=== PATIENT | female | born 2000 ===

== ENCOUNTER 2021-03-19 20:30 | Inpatient (IN) | payer MEDICAID ==
[2021-03-19] MEDS ORDERED: LIDOCAINE (2%) 20 MG/1 ML VIAL 20 ML MDV INFILTRATI ONE (22:12)
[2021-03-19] MEDS ORDERED: LOPERAMIDE 2 MG CAP PO PRN (22:12)
[2021-03-19] MEDS ORDERED: miSOPROStol 200 MCG TAB PR PRN (22:12)
[2021-03-19] MEDS ORDERED: CARBOPROST TROMETHAMINE 250 MCG/1 ML INJ IM PRN (22:12)
[2021-03-19] MEDS ORDERED: OXYTOCIN 10 UNIT/1 ML INJ IM PRN (22:12)
[2021-03-19] MEDS ORDERED: METHYLERGONOVINE MALEATE 0.2 MG/ML VIAL IM PRN (22:12)
[2021-03-19] MEDS ORDERED: MINERAL OIL 30 ML ORAL LIQD PO PRN (22:12)
[2021-03-19] MEDS ORDERED: ACETAMINOPHEN 325 MG TAB PO PRN (22:12)
[2021-03-19] MEDS ORDERED: NALOXONE 0.4 MG/1 ML INJ IV PRN (22:12)
[2021-03-19] MEDS ORDERED: AMPICILLIN/NS 2 GM/100 ML 2 GM/100 ML BAG IV ONE (22:12)
[2021-03-19] MEDS ORDERED: BUTORPHANOL 2 MG/1 ML INJ IV PRN (22:12)
[2021-03-19] MEDS ORDERED: ePHEDrine SULFATE 50 MG/1 ML INJ IV PRN (22:12)
[2021-03-19] MEDS ORDERED: TERBUTALINE 1 MG/1 ML INJ SUB-Q PRN (22:12)
[2021-03-19] MEDS ORDERED: ONDANSETRON 4 MG/2 ML INJ IV PRN (22:12)
[2021-03-19] MEDS ORDERED: OXYTOCIN DRIP 30 UNITS/500 ML BAG IV SCH ×2 (23:00)
[2021-03-19] MEDS: LACTATED RINGERS 1,000 ML IV SCH (23:54)
[2021-03-20 00:09] LABS: Hematocrit 34.1 % (30.3-42.9); Hemoglobin 11.3 gm/dl (10.1-14.3); Mean Corpuscular HGB Conc 33 % (30-34); Mean Corpuscular Volume 84 fl (79-97); Platelet Count 259 K/mm3 (140-440); Red Blood Count 4.05 M/mm3 (3.65-5.03); Red Cell Distribution Width 15.4 % (13.2-15.2)
[2021-03-20] MEDS: fentaNYL 100 MCG/2 ML INJ IV PRN ×4 (03:36→11:58)
[2021-03-20] MEDS: AMPICILLIN/NS 1 GM/50 ML 1 GM/50 ML BAG IV SCH ×4 (04:42→17:47)
[2021-03-20] MEDS ORDERED: LIDOCAINE (2%) 20 MG/1 ML VIAL 20 ML MDV INFILTRATI ONE (10:34)
--- NOTE | 2021-03-20 11:20 | History and Physical Report ---
History of Present Illness Date of examination: 03/20/21 Date of admission: 03/19/21 22:12 Chief complaint: my water broke History of present illness: Pt is a 21 year old female primigravida ZAHIDA 03/25/21 at 39w2d presents with rupture of membranes of unsure duration either one week or two days. She denies vaginal bleeding and leakage of fluid. She has had care at [facility] since 32 wks complicated by late entry to care, language barrier (prefers Lithuanian), and Rubella Equivocal status. She is GBS positive. Past History Past Medical History: no pertinent history Past Surgical History: no surgical history Family/Genetic History: none Social history: no significant social history - Obstetrical History Expected Date of Delivery: 03/25/21 Actual Gestation: 39 Week(s) 2 Day(s) : 1 Medications and Allergies Allergies Allergy/AdvReac Type Severity Reaction Status Date / Time No Known Allergies Allergy Verified 03/19/21 22:19 Active Meds: Active Medications Acetaminophen (Acetaminophen 325 Mg Tab) 650 mg PO Q4H PRN PRN Reason: Pain, Mild (1-3) Butorphanol Tartrate (Butorphanol 2 Mg/1 Ml Inj) 1 mg IV Q2H PRN PRN Reason: Pain, Moderate(4-6) LABOR PAIN Carboprost Tromethamine (Carboprost Tromethamine 250 Mcg/1 Ml Inj) 250 mcg IM ONCE PRN PRN Reason: Uterine Bleeding Ephedrine Sulfate (Ephedrine Sulfate 50 Mg/1 Ml Inj) 10 mg IV Q2M PRN PRN Reason: Hypotension Fentanyl (Fentanyl 100 Mcg/2 Ml Inj) 100 mcg IV Q2H PRN PRN Reason: Pain,Severe (7-10) LABOR PAIN Last Admin: 03/20/21 08:46 Dose: 100 mcg Documented by: Oxytocin/Sodium Chloride (Pitocin/Ns 30 Unit/500ml) 30 units in 500 mls @ 2 mls/hr IV TITR MANUEL; Protocol Last Titration: 03/20/21 10:39 Dose: 12 mls/hr Documented by: Lactated Ringer's (Lactated Ringers) 1,000 mls @ 125 mls/hr IV DIRECT MANUEL Last Admin: 03/19/21 23:54 Dose: 125 mls/hr Documented by: Oxytocin/Sodium Chloride (Pitocin/Ns 30 Unit/500ml) 30 units in 500 mls @ 40 mls/hr IV TITR MANUEL; Protocol Ampicillin Sodium (Ampicillin/Ns 1 Gm/50 Ml) 1 gm in 50 mls @ 100 mls/hr IV Q4H [facility]; Protocol Last Admin: 03/20/21 07:13 Dose: 100 mls/hr Documented by: Loperamide HCl (Loperamide 2 Mg Cap) 2 mg PO ONCE PRN PRN Reason: give with Hemabate Methylergonovine Maleate (Methylergonovine Maleate 0.2 Mg/Ml Vial) 0.2 mg IM ONCE PRN PRN Reason: Uterine Bleeding Mineral Oil (Mineral Oil 30 Ml Oral Liqd) 30 ml PO QHS PRN PRN Reason: Constipation Misoprostol (Misoprostol 200 Mcg Tab) 800 mcg MA ONCE PRN PRN Reason: Uterine Bleeding Naloxone HCl (Naloxone 0.4 Mg/1 Ml Inj) 0.1 mg IV Q2MIN PRN PRN Reason: Res Rate </= 8 or 02 SAT < 92% Ondansetron HCl (Ondansetron 4 Mg/2 Ml Inj) 4 mg IV Q8H PRN PRN Reason: Nausea And Vomiting Oxytocin (Oxytocin 10 Unit/1 Ml Inj) 10 unit IM ONCE PRN PRN Reason: Uterine Bleeding Terbutaline Sulfate (Terbutaline 1 Mg/1 Ml Inj) 0.25 mg SUB-Q ONCE PRN PRN Reason: Hyperstimulation/Hypertonicity Review of Systems All systems: negative - Vital Signs Vital signs: Vital Signs Pulse BP Pulse Ox 93 H 120/66 97 03/19/21 21:19 03/19/21 21:19 03/19/21 21:19 Temp Pulse Resp BP Pulse Ox 98.9 F 86 17 106/63 97 03/20/21 04:44 03/20/21 11:06 03/20/21 03:18 03/20/21 10:16 03/20/21 11:06 - Physical Exam Breasts: Positive: deferred Abdomen: Positive: soft (gravid) Uterus: Positive: enlarged (gravid ) Extremities: Positive: edema (trace ) - Obstetrical FHR: category 2 Uterine Contraction Monitor Mode: External Cervical Dilatation: 4 Cervical Effacement Percentage: 80 station: -2 Uterine Contraction Pattern: Regular Uterine Tone Measurement Phase: Resting Uterine Contraction Intensity: Strong/Firm Results Result Diagrams: 10/26/21 22:40 Abnormal lab results 03/19/21 03/19/21 Range/Units 21:25 22:40 RDW 15.4 H (13.2-15.2) % Membranes Rupture Positive A (Negative) All other labs normal. Assessment and Plan A: IUP at 39w2d Prolonged ROM- unsure duration Insufficient Care GBS positive P: Admit to labor and delivery Ampicillin for GBS prophylaxis Routine intrapartum care Closely monitor maternal and status
[2021-03-20] MEDS ORDERED: NALOXONE 2 MG/2 ML INJ IV PRN (13:07)
[2021-03-20] MEDS ORDERED: ePHEDrine SULFATE 50 MG/1 ML INJ IV PRN (13:07)
--- NOTE | 2021-03-20 13:09 | Anesthesia Consultation ---
Anesthesia Consult and Med Hx Date of service: 03/20/21 - Airway Anesthetic Teeth Evaluation: Good ROM Head & Neck: Adequate Mental/Hyoid Distance: Adequate Mallampati Class: Class II Intubation Access Assessment: Good - Pulmonary Exam CTA: Yes - Cardiac Exam Cardiac Exam: RRR - Pre-Operative Health Status ASA Pre-Surgery Classification: ASA2 Proposed Anesthetic Plan: Epidural - Pulmonary Hx Smoking: No Hx Asthma: No Hx Respiratory Symptoms: No SOB: No COPD: No Home Oxygen Therapy: No Hx Pneumonia: No Hx Sleep Apnea: No - Cardiovascular System Hx Hypertension: No Hx Coronary Artery Disease: No Hx Heart Attack/AMI: No Hx Angina: No Hx Percutaneous Transluminal Coronary Angioplasty (PTCA): No Hx Cardia Arrhythmia: No Hx Pacemaker: No Hx Internal Defibrillator: No Hx Valvular Heart Disease: No Hx Heart Murmur: No Hx Peripheral Vascular Disease: No - Central Nervous System Hx Neuromuscular Disorder: No Hx Seizures: No CVA: No Hx Back Pain: No Hx Psychiatric Problems: No - Gastrointestinal Hx Ulcer: No Hx Gastroesophageal Reflux Disease: No - Endocrine Hx Renal Disease: No Hx End Stage Renal Disease: No Hx Cirrhosis: No Hx Liver Disease: No Hx Insulin Dependent Diabetes: No Hx Non-Insulin Dependent Diabetes: No Hx Thyroid Disease: No Hx Hypothyroidism: No Hx Hyperthyroidism: No - Hematic Hx Anemia: No Hx Sickle Cell Disease: No - Other Systems Hx Alcohol Use: No Hx Substance Use: No Hx Cancer: No Hx Obesity: No
[2021-03-20] MEDS ORDERED: fentaNYL-BUPIV 2 MCG/ML-0.125% 200 MCG/100 ML BAG EPIDURAL SCH (14:00)
--- NOTE | 2021-03-20 15:05 | Progress Note ---
Labor Epidural - Labor Epidural Start Time: 12:52 Stop Time: 13:00 Performed by:: SUMIT HIGHTOWER Procedure: Patient is requesting a laboring epidural for laboring pain. Patient IDed, H&P reviewed, all questions and concerns were answered, and consent was signed. Timeout was performed at bedside. Patient in sitting position. Sterile prep and drape was performed. [3] ml of 1% lidocaine skin wheal at L[3]- L [4]. 17- gauge Tuohy epidural needle was advanced to loss of resistance with saline technique 4cm. Negative CSF negative blood. Epidural catheter advanced to [8] centimeters. [NEGATIVE] Aspiration [NEGATIVE] test dose. Sterile dressing applied. Patient tolerated procedure.
[2021-03-20] MEDS: LACTATED RINGERS 1,000 ML IV SCH (17:28)
--- NOTE | 2021-03-20 23:52 | Event Note ---
Date: 03/20/21 Assumed care of patient at 1700. Received call from nurse at 2145 stating that patient was 10 cm. Nurse advised to test push with patient. Per nurse, patient was moving infant well but was comfortable. Received second call stating that patient was ready to deliver. Upon arrival patient restarted pushing and although was moving slowly, patient had only moderate pushing effort. Patient pushed for approximately 45 minutes but then became more uncomfortable as epidural pump had run out. . Pt then decreased her pushing effort as she became more comfortable. At this point I advised nurse to hang second epidural bag, allow patient to passively labor. Anticipate .
--- NOTE | 2021-03-21 05:31 | Procedure Note ---
OB Delivery Note - Delivery Date of Delivery: 03/21/21 Surgeon: KWADWO TAO Estimated blood loss: 300cc - Vaginal Delivery presentation: vertex Delivery position: OA Intrapartum events: PROM->1hr before delivery, prolonged 2nd stage>2.5hr Delivery induction: none Delivery augmentation: pitocin Delivery monitor: external FHT, external uterine Route of delivery: Delivery placenta: spontaneous Delivery cord: 3 umbilical vessels Episiotomy: none Delivery laceration: 2nd degree Delivery repair: vicryl Anesthesia: epidural Delivery comments: Viable male delivered over intact perineum at 505 a.m. Mouth and nose were suctioned on the field. Infant had spontaneous cry and was placed on maternal abdomen. Cord was clamped and cut when finished pulsating. Weight 6 pounds 11 ounces. Apgars 8/9. Placenta was delivered spontaneously and intact with three-vessel cord. Patient had a second-degree laceration that was repaired with 2-0 Vicryl. Excellent hemostasis. Patient tolerated procedure well. - Infant A at 1 minute: 8 at 5 minutes: 9 Gender: Male (6 pounds 11 ounces)
[2021-03-21] MEDS ORDERED: MAGNESIUM HYDROXIDE (MOM) ORAL LIQD UDC PO PRN (06:22)
[2021-03-21] MEDS ORDERED: LANOLIN/ZINC/DIMETHICONE (LANSINOH) 7 GM TP PRN (06:22)
[2021-03-21] MEDS ORDERED: diphenhydrAMINE 25 MG CAP PO PRN (06:22)
[2021-03-21] MEDS ORDERED: PROMETHAZINE 25 MG RECT SUPP PR PRN (06:22)
[2021-03-21] MEDS ORDERED: HYDROcodone/ACETAMINOPHEN 5-325 MG TAB PO PRN (06:22)
[2021-03-21] MEDS ORDERED: WITCH HAZEL/ GLYCERIN PAD TP PRN (06:22)
[2021-03-21] MEDS ORDERED: ACETAMINOPHEN 325 MG TAB PO PRN (06:22)
[2021-03-21] MEDS ORDERED: PROMETHAZINE 25 MG TAB PO PRN (06:22)
[2021-03-21] MEDS ORDERED: ONDANSETRON 4 MG/2 ML INJ IV PRN (06:22)
[2021-03-21] MEDS: IBUPROFEN 600 MG TAB PO SCH ×4 (06:36→23:26)
[2021-03-21] MEDS: DOCUSATE SODIUM 100 MG CAP PO SCH ×2 (11:32→23:26)
[2021-03-21 18:56] LABS: Hematocrit 26.3 % (30.3-42.9); Hemoglobin 8.3 gm/dl (10.1-14.3)
[2021-03-22] MEDS: IBUPROFEN 600 MG TAB PO SCH (05:07)
[2021-03-22] MEDS ORDERED: TETANUS,DIPH,PERTUSS(ACELL) VACCINE 0.5 ML SYRINGE IM ONE (06:00)
--- NOTE | 2021-03-22 08:36 | Progress Note ---
Assessment and Plan A; PPD#1 s/p at term Asymptomatic anemia COVID-19 P: Routine care Discharge home with follow up in 4 wks in office Subjective - Subjective Date of service: 03/22/21 Principal diagnosis: s/p at term Interval history: No issues overnight. Continues to be asymptomatic regarding COVID-19. She would like to go home if possible Patient reports: appetite normal, voiding normally, pain well controlled, ambulating normally [place]: doing well Objective - Vital Signs Latest vital signs: Vital Signs Temp Pulse Resp BP Pulse Ox Pulse Ox 03/22/21 05:07 20 03/22/21 04:00 98.0 F 78 16 100/66 97 03/21/21 23:35 98.5 F 89 20 98/52 98 03/21/21 23:26 20 03/21/21 19:35 98.4 F 88 18 102/52 97 97 03/21/21 17:45 98.2 F 94 H 20 100/40 96 03/21/21 13:20 98.4 F 93 H 16 99/47 97 03/21/21 09:15 98.8 F 70 16 105/48 97 98 Intake and Output 03/21/21 03/22/21 03/22/21 22:59 06:59 14:59 Intake Total 240 360 Output Total 600 Balance -360 360 Intake: Intake, Free Water 240 360 Output: Urine 600 Void 600 Other: Total, Output Amount 600 # Voids Void 2 1 - Exam Breasts: Present: deferred Abdomen: Present: soft Uterus: Present: fundal height below umbilicus Extremities: Present: edema (trace) - Labs Labs: Abnormal lab results 03/21/21 Range/Units 18:23 Hgb 8.3 L D (10.1-14.3) gm/dl Hct 26.3 L D (30.3-42.9) %
--- NOTE | 2021-03-22 08:38 | Discharge Summary ---
Providers - Providers Date of Admission: 03/19/21 22:12 Date of discharge: 03/22/21 Attending physician: YARY ADAMES Primary care physician: YARY ADAMES Hospitalization Reason for admission: rupture of membranes Delivery: Procedure details: Please see delivery note Episiotomy: none Laceration: 2nd degree Other procedures: none complications: none Discharge diagnosis: IUP at term delivered, other (COV) [place] baby: male Hospital course: This patient was admitted with rupture of membranes for unsure duration at term. She went on to have a spontaneous vaginal delivery which she tolerated well. Her course was complicated by incidental finding of COVID-19 positive status. The remainder of her course was uncomplicated and she met discharge criteria on day #1. She will follow-up in the office in 4 weeks for a exam. Condition at discharge: Stable Disposition: 01 HOME / SELF CARE / HOMELESS - Discharge Diagnoses (1) Term of male Status: Acute (2) COVID-19 affecting in third trimester Status: Acute (3) Acute blood loss anemia Status: Acute Plan - Discharge Medications Prescriptions: Ferrous Sulfate [Iron 325 MG] 325 mg PO BID #60 tablet Ibuprofen [Motrin] 600 mg PO Q8H PRN #30 tablet PRN Reason: Pain - Provider Discharge Summary Activity: routine, no sex for 6 weeks, no heavy lifting 4 weeks, no strenuous exercise Diet: routine Instructions: routine Additional instructions: [] Smoking cessation referral if applicable(refer to patient education folder for contact #) [] Refer to [facility] Booklet Call your doctor immediately for: * Fever > 100.5 * Heavy vaginal bleeding ( >1 pad per hour) * Severe persistent headache * Shortness of breath * Reddened, hot, painful area to leg or breast * Drainage or odor from incision. * Keep incision clean and dry at all times and follow doctor's instructions regarding bathing/showering - Follow up plan Follow up: [facility] [Advanced Practice Nurse] - 04/22/21 (Please schedule your son's circumcision after he is 2 wks, but less than 4 wks old.)
[2021-03-22] MEDS: DOCUSATE SODIUM 100 MG CAP PO SCH (11:06)
[2021-03-22] MEDS ORDERED: FLU VACC QUAD 2021-22(6MOS UP)/PF 60 MCG/0.5 ML SYRINGE IM ONE (12:00)
--- NOTE | 2021-03-22 13:45 | Post Anesthesia Evaluation ---
- Post Anesthesia Evaluation Patient Participated: Yes Airway Patent: Yes Stable Respiratory Function: Yes Nausea/Vomiting: No Temp > 96.8F: Yes Pain Manageable: Yes Adequeate Hydration: Yes Anesthesia Complications: No Block Receding Appropriately: Yes Patient on Ventilator: No
[2021-03-22 17:58] VITALS: BP 110/56
== END 2021-03-22 20:20 | disposition home or self-care (01) | DRG 774 ==
LOC: TRG 20:30 → APU 20:33 → TRG 22:12 → LD 22:12 → OB 03-21 09:33
PROVIDERS: ADMIT Obstetrics & Gynecology; ATTEND Obstetrics & Gynecology
PROC: 10E0XZZ Delivery of Products of Conception, External Approach (ICD-10-PCS; principal; 2021-03-21)
PROC: 0KQM0ZZ Repair Perineum Muscle, Open Approach (ICD-10-PCS; 2021-03-21)
PROC: 3E0R3BZ Introduction of Anesthetic Agent into Spinal Canal, Percutaneous Approach (ICD-10-PCS; 2021-03-21)
PROC: 00HU33Z Insertion of Infusion Device into Spinal Canal, Percutaneous Approach (ICD-10-PCS; 2021-03-21)
DX: O42.90 Premature rupture of membranes, unspecified as to length of time between rupture and onset of labor, unspecified weeks of gestation (principal); O98.52 Other viral diseases complicating childbirth; O98.82 Other maternal infectious and parasitic diseases complicating childbirth; Z3A.39 39 weeks gestation of pregnancy; Z37.0 Single live birth; B95.1 Streptococcus, group B, as the cause of diseases classified elsewhere; O70.1 Second degree perineal laceration during delivery; U07.1 COVID-19; O99.02 Anemia complicating childbirth; D62 Acute posthemorrhagic anemia
CPT/HCPCS: 36415; 59025; 84112; 85014; 85018; 85027; 86592; 86850; 86900; 86901; 99211; G0378; G0463; J0290; J2210; J2590; J3010; J7120; U0003